=== PATIENT | male | born 2000 | race African-American/Black ===

== ENCOUNTER 2022-03-03 22:55 | Emergency (ER) | payer SELFPAY ==
[~2022-03-03] VITALS: Ht 170.2 cm; Wt 65.8 kg
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
[2022-03-03 23:20] LABS: CALCIUM 9.5 mg/dL (8.5-10.1); CREATININE 0.9 mg/dL (0.7-1.3); GFR 106.5; POTASSIUM 5.8 mmol/L (3.5-5.1)
[2022-03-03 23:26] LABS: ALBUMIN/GLOBULIN RATIO 0.8 (1.0-1.7); TOTAL BILIRUBIN 0.7 mg/dL (0.2-1.0)
[2022-03-03 23:50] LABS: BASO % 1 % (0-3); EOS # 0.1 x10^3/uL (0.0-0.7); EOS % 1 % (0-3); HEMATOCRIT 44.1 % (39.0-53.0); HEMOGLOBIN 14.7 g/dL (13.0-17.5); LYMPH # 2.5 x10^3/uL (1.0-4.8); LYMPH % 39 % (24-48); MEAN CORPUSCULAR HEMOGLOBIN 32 pg (25-35); MEAN CORPUSCULAR HGB CONC 33 g/dL (31-37); MEAN CORPUSCULAR VOLUME 97 fL (79-100); MONO # 0.5 x10^3/uL (0.0-1.1); MONO % 8 % (0-9); NEUT # 3.3 x10^3/uL (1.8-7.7); NEUT % 51 % (31-73); PLATELET COUNT 219 x10^3/uL (140-400); RED BLOOD COUNT 4.54 x10^6/uL (4.30-5.70); RED CELL DISTRIBUTION WIDTH 13.2 % (11.5-14.5); WHITE BLOOD COUNT 6.5 x10^3/uL (4.0-11.0)
[2022-03-04] MEDS ORDERED: DIPHTH,PERTUSS(ACELL),TET TOX 0.5 ML DISP.SYRIN. VAX IM ONE
[2022-03-04 00:01] LABS: PROTHROMBIN TIME PATIENT 13.9 SEC (11.7-14.0)
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
--- NOTE | 2022-03-08 07:48 | EKG ---
[facility] [address] [place] [id number] Test Date: 2022-03-03 Test Time: 23:25:54 Pat Name: BAYLEE JENKINS Department: Room: Gender: M [employer]: : 2000 Requested By: JENNA MITCHELL Order Number: [id number] Reading MD: Monty Jarvis MD Measurements Intervals [place] Rate: 62 P: 36 W[place]: 152 QRS: 78 QRSD: 88 T: 50 QT: 388 QTc: 396 Interpretive Statements SINUS RHYTHM Electronically Signed On 03-08-2022 11:31:32 CDT by Monty Jarvis MD
== END 2022-03-04 01:10 ==
LOC: EEVIPCON 22:55 → ER 22:55
DX: S01.91XA Laceration without foreign body of unspecified part of head, initial encounter (principal); R51.9 Headache, unspecified; W34.09XA Accidental discharge from other specified firearms, initial encounter; Y93.89 Activity, other specified; Y92.89 Other specified places as the place of occurrence of the external cause; Y99.8 Other external cause status
CPT/HCPCS: 36415; 70450; 80053; 85025; 85610; 85730; 86850; 86900; 86901; 90471; 90715; 93005; 99283-25; 99285-25